=== PATIENT | female | born 1950 | race Caucasian/White ===

== ENCOUNTER 2017-10-14 08:27 | Day surgery (SDC) | payer BC, OTHER ==
[2017-10-09 15:48] VITALS: BMI 24.0
[2017-10-14 08:48] VITALS: TEMP 98.5
[2017-10-14] MEDS ORDERED: PROPOFOL 20 ML ONE ×3 (08:55→09:46)
[2017-10-14 11:22] VITALS: PULSE 64
[2017-10-14 11:26] VITALS: BP 105/75
--- NOTE | 2017-10-16 14:56 | PATH ---
Surgical Pathology Report Patient Name: ANDREW DAVIS [facility]. Rec. #: [id number] /Age/Gender: 1950 (Age: 67) / F Account: [id number] Location: [facility]-ENDOSCOPY Taken: 10/14/2017 Received: 10/14/2017 Reported: 10/16/2017 Physicians: Jose Martin Najera M.D. 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 Electronically Signed Sybil Burks M.D. Gross Description Received in formalin, labeled "rectum" are 2 vega, irregular portions of soft tissue measuring 0.3 and 0.5 cm. in greatest dimension. The specimens are submitted in toto in one cassette. /10/15/201710/15/2017
== END 2017-10-14 11:10 | disposition home or self-care (01) ==
LOC: FASU-ENDO 08:27
PROVIDERS: ATTEND Internal Medicine Gastroenterology
PROC: 0DBP8ZX Excision of Rectum, Via Natural or Artificial Opening Endoscopic, Diagnostic (ICD-10-PCS; principal; 2017-10-14 10:06)
DX: Z12.11 Encounter for screening for malignant neoplasm of colon (principal); K62.1 Rectal polyp; K57.30 Diverticulosis of large intestine without perforation or abscess without bleeding
CPT/HCPCS: 88305-TC